=== PATIENT | male | born 1975 | race Caucasian/White ===

== ENCOUNTER 2018-09-22 07:28 | Emergency (ER) | payer BC, OTHER ==
[2018-09-22 07:34] VITALS: RESP 18; TEMP 98
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
[2018-09-22 08:49] VITALS: BP 144/72; PULSE 70
== END 2018-09-22 08:41 | disposition home or self-care (01) ==
LOC: EC 07:28
DX: S09.90XA Unspecified injury of head, initial encounter (principal); Z53.29 Procedure and treatment not carried out because of patient's decision for other reasons; Y04.0XXA Assault by unarmed brawl or fight, initial encounter
CPT/HCPCS: 99283

== ENCOUNTER 2022-01-03 07:30 | Day surgery (SDC) | payer BC, OTHER ==
[2022-01-02 08:48] VITALS: BMI 32.7
[~2022-01-03 07:30] MED LIST: LIDOCAINE 1% (10MG/ML) FOR IV START INTRADERMA PRN
[2022-01-03] MEDS: LACTATED RINGERS 1,000 ML IV SCH ×2 (08:02→08:20)
[2022-01-03 08:08] VITALS: RESP 16; TEMP 97.5
[2022-01-03 08:16] LABS: Glucose,Whole Blood 157 mg/dL (75-99)
[2022-01-03] MEDS ORDERED: PROPOFOL 10 MG/ML 20 ML VIAL IV ONE (08:22)
[2022-01-03] MEDS ORDERED: MIDAZOLAM 2 MG/2 ML VIAL ONE (08:22)
[2022-01-03] MEDS ORDERED: fentaNYL (PF) 50 MCG/ML 2 ML AMP ONE (08:22)
--- NOTE | 2022-01-03 08:36 | P.PCN ---
Date of Procedure: 01/03/22 Procedure(s) Performed: BRIEF HISTORY: Patient is a 46-year-old pleasant white female scheduled for an elective colonoscopy as a part of evaluation of change in bowel habits for the last 3 months duration. His been having alternating diarrhea and constipation but no rectal bleeding. PROCEDURE PERFORMED: Colonoscopy. PREOPERATIVE DIAGNOSIS: Change in bowel habits. IV sedation per Anesthesia. PROCEDURE: After informed consent was obtained, the patient, was brought into the endoscopy unit. IV sedation was administered by Anesthesia under continuous monitoring. Digital rectal examination was normal. Initially the Olympus CF-160 flexible video colonoscope was then inserted in the rectum, gradually advanced into the cecum without any difficulty. Careful examination was performed as the scope was gradually being withdrawn. Ileocecal valve and the appendiceal orifice were visualized and appeared normal. Prep was excellent. Mucosa of the cecum, ascending colon, transverse colon, descending colon, sigmoid colon, and rectum appeared normal. Retroflexion was performed in the rectum and small internal were seen. The patient tolerated the procedure well. IMPRESSION: Normal-appearing colon from rectum to cecum no evidence of colorectal neoplasia. Small internal hemorrhoids. RECOMMENDATIONS: Findings of this examination were discussed with the patient as well as his family. Recommended to increase fiber intake and consider fiber supplements on a regular basis. He was advised to have a repeat screening colonoscopy in 10 years..
[2022-01-03 08:56] VITALS: BP 111/72; PULSE 77
== END 2022-01-03 09:30 | disposition home or self-care (01) ==
LOC: ORWHC2ENDO 07:30
PROVIDERS: ATTEND Internal Medicine Gastroenterology
DX: R19.7 Diarrhea, unspecified (principal); K59.00 Constipation, unspecified; K64.8 Other hemorrhoids; I10 Essential (primary) hypertension; E11.9 Type 2 diabetes mellitus without complications; F41.9 Anxiety disorder, unspecified; F32.A Depression, unspecified; Z79.84 Long term (current) use of oral hypoglycemic drugs; Z79.82 Long term (current) use of aspirin; Z79.899 Other long term (current) drug therapy
CPT/HCPCS: 45378; J2250; J3010; J2704